=== PATIENT | female | born 1995 | race Caucasian/White ===

== ENCOUNTER → 2023-12-14 12:05 | Outpatient (REF) | payer BC, SELFPAY | LOC: HWRAD 12:05 | PROVIDERS: ATTENDING PHYSICIAN Physician Assistant Medical | DX: R10.84 Generalized abdominal pain (principal) | CPT/HCPCS: 74177; Q9967 ==

== ENCOUNTER 2023-12-15 09:46 | Emergency (ER) | payer BC, SELFPAY ==
[2023-12-15 09:53] VITALS: BP 115/68
--- NOTE | 2023-12-15 10:34 | ED.GENMED ---
History of Present Illness
General
Chief Complaint: Abdominal Symptoms
Time Seen by Provider: 12/15/23 10:31
Travel History
Have you had any contact with someone who has COVID-19?: No
Do you have any symptoms of coronavirus? Fever > 100 degrees, chills, cough, shortness of breath, sore throat, loss of taste or smell, muscle aches, or headache?: No
History of Present Illness
History of Present Illness:
HPI: The patient presents with abdominal pain. This is been ongoing for the past few days. This is associate with nausea and vomiting. She had an outpatient CT yesterday at the [facility] that showed ovarian cysts. She now has vaginal
bleeding. She has not seen a [employer] in a while. She is concerned for the possible of endometriosis and states that Toradol has helped her in the past.
EXAM:
GENERAL: Well appearing in mild distress
HEENT: Moist oral mucosa
CARDIOVASCULAR: No murmurs, normal heart rate, regular rhythm, No chest wall tenderness
PULMONARY: No respiratory distress, breath sounds are clear and equal
ABDOMEN: Soft with no peritoneal signs, mild diffuse lower tenderness
NEUROLOGIC: Excellent strength all extremities, no coordination deficits
PSYCHIATRIC: Appropriate mental status, normal insight and judgement
EXTREMITIES: Nontender, no edema, moves all extremities equally
SKIN: No rash, no lesions
TIME OF INITIAL ENCOUNTER: 10:45 AM
NUMBER AND COMPLEXITY OF PROBLEMS ADDRESSED AT THE ENCOUNTER
� Chronic conditions affecting care: Has had similar abdominal pains in the past
� Acute Exacerbation and/or Progression of Chronic Illness: Acute exacerbation of abdominal pain
� Differential Diagnosis includes: Endometriosis, ovarian cyst, ruptured ovarian cyst, ovarian torsion, PID
AMOUNT AND/OR COMPLEXITY OF DATA TO BE REVIEWED AND ANALYZED
� I performed an independent evaluation of and my interpretation is:
EKG:
CT:
X-rays:
Laboratory Studies: White count 22.2, hemoglobin normal, chemistries unremarkable, hCG negative, urinalysis reviewed
Other: Ultrasound imaging reviewed
� Review of other/old records: CT from 12/14/2023 ordered as an outpatient showed no definite acute findings with an unremarkable appendix. Bilateral ovarian cysts noted, 'presence of ruptured cyst cannot be excluded'
� Clinical information was obtained by an independent historian: Spoke to the mother at bedside who confirms Toradol has helped her in the past
� Prescriptions/Medications Considered but not given:
� Further testing considered but not performed:
RISK OF COMPLICATIONS AND/OR MORBIDITY OR MORTALITY OF PATIENT MANAGEMENT
� Social determinants of health affecting care: Lives at home
� Discussion with other providers: Notify Dr. Arnett she recommends treatment for PID�I did give an IV dose of Rocephin and will place on doxycycline.
� Escalation of care including admission/observation vs risk of discharge considered: I reviewed CT imaging as an outpatient�will obtain ultrasound imaging. Fluids, Toradol, Zofran given. After she came back from ultrasound,
pain returned and additional Toradol then low-dose Dilaudid was given. She appears fairly comfortable on reassessment around 3 PM. I performed bimanual examination and there was no cervical motion tenderness with only minimal adnexal tenderness.
Overall there has been some improvement. I still recommend that she takes NSAIDs as well and she will continue her control pill.
Phy Exam
Physical Exam
Physical Exam:
See HPI
Course
Orders/Labs/Results
Orders:
Orders
12/15/23 10:35
US Pelvis Transvaginal Only Urgent
Reason For Exam: abnormal outpt CT
12/15/23 10:36
Test Result ONCE
12/15/23 10:49
0.9% Sodium Chloride 1000 ml [Nss] 1,000 ml IV BOLUS
0.9% Sodium Chloride 1000 ml [Nss] 1,000 ml IV BOLUS
Ketorolac [Toradol] 15 mg IV NOW STA
Ondansetron Injectable [Zofran] 4 mg IV NOW STA
12/15/23 11:15
Basic Metabolic Panel Urgent
Complete Blood Count/With Diff Urgent
HCG, Serum Qualitative Screen Urgent
12/15/23 11:16
Urinalysis Reflex To Culture Urgent
Date Specimen was Collected: 12/15/23
Time Specimen was Collected: 11:15
Urine Microscopic Reflex Cult Urgent
Urine Culture Urgent
STORM Source: U
Specimen Description:
Date Specimen was Collected: 12/15/23
Time Specimen was Collected: 11:15
12/15/23 13:40
Ketorolac [Toradol] 15 mg .ROUTE .STK-MED ONE
12/15/23 13:43
Ketorolac [Toradol] 15 mg IV NOW STA
12/15/23 14:19
HYDROmorphone [Dilaudid] 0.5 mg .ROUTE .STK-MED ONE
12/15/23 14:31
HYDROmorphone [Dilaudid] 0.5 mg IV NOW STA
Abnormal Lab Results
12/15/23 12/15/23
11:15 11:16
WBC 22.2 H 10^3/uL
(4.8-10.8)
Abs Immat Gran (auto) 0.3 H 10^3/uL
(0-0.05)
Absolute Neuts (auto) 17.9 H 10^3/uL
(1.4-6.5)
Absolute Monos (auto) 2.2 H 10^3/uL
(0.1-0.6)
Immature Gran % 1.1 H %
(0-0.5)
Neutrophils % 80.8 H %
(42.2-75.2)
Lymphocytes % 7.9 L %
(20.5-51.1)
Monocytes % 9.9 H %
(1.7-9.3)
Creatinine 0.5 L mg/dL
(0.6-1.0)
Glucose 103 H mg/dl
(70-99)
Urine Ketones 2+ A
(Negative)
Ur Occult Blood Reflex 4+ A
(Negative)
Urine Nitrite (Reflex) Positive A
(Negative)
Urine Bilirubin 1+ A
(Negative)
Urine Urobilinogen 3+ A
(Neg - 1+)
Leukocyte Esterase Rfl 1+ A
(Negative)
Urine RBC 3-6 A /HPF
(0-2)
Urine Bacteria (Reflex) Many A
(Negative)
Urine Albumin (Reflex) 1+ A
(Neg - Trace)
12/15/23 11:15
12/15/23 11:15
Vital Signs
Initial and Last Documented VS:
Initial Vital Signs
Temp Pulse Resp BP Pulse Ox
98 F 103 18 115/68 98
12/15/23 09:53 12/15/23 09:53 12/15/23 09:53 12/15/23 09:53 12/15/23 09:53
Last Documented Vital Signs
Temp Pulse Resp BP Pulse Ox
98 F 103 18 110/58 100
12/15/23 09:53 12/15/23 09:53 12/15/23 09:53 12/15/23 12:00 12/15/23 13:23
*Critical Care Note
Total Time (30-74mins, 75-104mins- exclusive of procedures): Not Applicable
ED Attending Note
-
Portions of this chart may have been created with voice recognition software.� Occasional wrong word or��sound alike� substitutions may have occurred due to the inherent limitations of voice recognition software.
Discharge Plan
Departure
Patient Disposition: Home (Routine Discharge)
Date of Disposition: 12/15/23
Time of Disposition: 15:17
Patient with high blood pressure during this ER visit?: Yes
Discharge Problem:
Pelvic pain
Instructions: Pelvic inflammatory disease, Pelvic Pain (DC)
Prescriptions:
New
doxycycline hyclate 100 mg capsule
100 mg PO BID Qty: 14 0RF
tramadol 50 mg tablet
50 - 100 mg PO Q8H PRN (Reason: Pain) Qty: 14 0RF
Referrals:
Miguel Erazo PA-C [Family Provider] -
Activity Restrictions/Additional Instructions:
Please follow-up your primary care doctor, I also recommend that you follow-up with gynecology�Dr. Arnett. I have given you her contact information. I recommend 3-4 [id number] ibuprofen (Motrin) every 8 hours with food for a few days. Return
here if worse. We gave a dose of IV Rocephin. I sent a prescription for doxycycline to your pharmacy as well as for tramadol to help with pain. Take tramadol as needed but I do recommend taking Motrin more routinely to help prevent the pain
coming back.
Interventions
Interventions:
*Risk Screen - Suicide Last Done: 12/15/23 09:53
*General Assessment Last Done: 12/15/23 09:53
*Neglect/Abuse Screening Last Done: 12/15/23 09:53
*ED COVID-19 Vaccine History Last Done: 12/15/23 11:11
CS-Ezxeps-Wucycwfdhx Assessment Last Done: 12/15/23 11:12
[2023-12-15 11:03] VITALS: BP 119/72
[2023-12-15 11:10] VITALS: BMI 20.2
[2023-12-15] MEDS: NSS 1000 IV ×2 (11:15→13:46)
[2023-12-15] MEDS: TORADOL 15 MG IV ×2 (11:21→13:44)
[2023-12-15] MEDS: ZOFRAN 4 MG IV (11:21)
[2023-12-15 11:31] LABS: % Basophils 0.3 % (0-2); % Immature Granulocytes 1.1 % (0-0.5); % Lymphocytes 7.9 % (20.5-51.1); % Monocytes 9.9 % (1.7-9.3); % Neutrophils 80.8 % (42.2-75.2); Absolute Basophils 0.1 10^3/uL (0-0.2); Absolute Immature Granulocytes 0.3 10^3/uL (0-0.05); Absolute Lymphocytes 1.8 10^3/uL (1.2-3.4); Absolute Monocytes 2.2 10^3/uL (0.1-0.6); Absolute Neutrophils 17.9 10^3/uL (1.4-6.5); Hematocrit 38.7 % (37.0-47.0); Hemoglobin 13.4 g/dL (12.0-16.0); Mean Corp Hgb Conc. 34.6 g/dL (33.0-37.0); Mean Corpuscular Hgb 29.9 pg (27.0-31.0); Mean Corpuscular Volume 86.4 fL (81.0-99.0); Mean Platelet Volume 10.3 fL (7.4-10.4); Nucleated Red Blood Cells % 0 %; Platelet Count 376 10^3/uL (130-400); Red Blood Cell Count 4.48 10^6/uL (4.20-5.40); Red Cell Dist. Width 12.6 % (11.5-14.5); White Blood Cell Count 22.2 10^3/uL (4.8-10.8)
[2023-12-15 11:36] LABS: Urine Albumin 1+ (Neg - Trace); Urine Bilirubin 1+ (Negative); Urine Character Slightly Cloudy (Clear); Urine Color Yellow; Urine Glucose Negative (Negative); Urine Ketone 2+ (Negative); Urine Leukocyte 1+ (Negative); Urine Nitrite Positive (Negative); Urine Occult Blood 4+ (Negative); Urine Urobilinogen 3+ (Neg - 1+)
[2023-12-15 11:39] LABS: HCG, Serum Qualitative Screen Negative
[2023-12-15 11:42] LABS: Blood Urea Nitrogen 15 mg/dl (7-17); Calcium 9.4 mg/dl (8.4-10.2); Carbon Dioxide 27 mmol/L (22-30); Chloride 100 mmol/L (98-107); Estimated Creatinine Clearance 100 ml/min; Glucose 103 mg/dl (70-99); Potassium 4.3 mmol/L (3.5-5.1); Sodium 135 mmol/L (135-145); eGFR > 60.00
[2023-12-15 12:00] VITALS: BP 110/58
[2023-12-15 12:26] LABS: Urine Mucus Many
[2023-12-15 12:28] LABS: Urine Amorphous Seen; Urine Squamous Cell 21-25 /LPF (Few)
[2023-12-15 12:29] LABS: Urine Granular Cast 0-2 /LPF (0)
[2023-12-15 12:31] LABS: Urine Bacteria Many (Negative)
[2023-12-15 13:23] VITALS: BP 140/117
[2023-12-15 14:00] VITALS: BP 112/66
[2023-12-15] MEDS: DILAUDID 0.5 MG IV (14:32)
[2023-12-15 15:00] VITALS: BP 123/65
[2023-12-15] MEDS: ROCEPHIN 1000 MG IV (15:49)
== END 2023-12-15 16:09 | disposition home or self-care (01) ==
LOC: EMR 09:46
PROVIDERS: EMERGENCY PHYSICIAN Emergency Medicine; FAMILY PHYSICIAN Physician Assistant Medical
DX: R10.2 Pelvic and perineal pain (principal)
CPT/HCPCS: 99284; 96374; 96375 ×3; 96361; 96376; 76830; 80048; 81003; 81015; 84703; 85025; 87086